=== PATIENT | female | born 1945 | race Caucasian/White ===

== ENCOUNTER → 2017-08-12 | Outpatient (CLI) | payer OTHER, MEDICARE | LOC: FIMAGING 11:18 | DX: Z12.31 Encounter for screening mammogram for malignant neoplasm of breast (principal) ==

== ENCOUNTER 2018-04-27 12:04 | Day surgery (SDC) | payer OTHER, MEDICARE ==
[~2018-04-27 12:04] MED LIST: LIDOCAINE 2% 5 ML SDV ONE; PROPOFOL/EMULSION 500 MG/50 ML BOTTLE IV ONE; fentaNYL 100 MCG/2 ML INJ ONE
--- NOTE | 2018-04-27 12:28 | PDANEPAE ---
ANE History of Present Illness h/o colon polyps, here for colonoscopy ANE Past Medical History - Cardiovascular History Hx Hypertension: No Hx Arrhythmias: No Hx Chest Pain: No Hx Coronary Artery / Peripheral Vascular Disease: No Hx CHF / Valvular Disease: No Hx Palpitations: No Cardiovascular History Comment: high chol - Pulmonary History Hx COPD: No Hx Asthma/Reactive Airway Disease: No Hx Recent Upper Respiratory Infection: No Hx Oxygen in Use at Home: No Hx Sleep Apnea: No Sleep Apnea Screening Result - Last Documented: Negative - Neurologic History Hx Cerebrovascular Accident: No Hx Seizures: No Hx Dementia: No - Endocrine History Hx Diabetes: No Endocrine History Comment: type 2- no medications - Renal History Hx Renal Disorders: No - Liver History Hx Hepatic Disorders: No - Neurological & Psychiatric Hx Hx Neurological and Psychiatric Disorders: No - Cancer History Hx Cancer: No - Congenital Disorder History Hx Congenital Disorders: No - GI History Hx Gastrointestinal Disorders: No - Other Health History Other Health History: wears glasses. tendonitis to left thumb - Chronic Pain History Chronic Pain: No - Surgical History Prior Surgeries: tonsillectomy. ovarian cyst removal. wisdom teeth ANE Review of Systems Review of Systems: - Exercise capacity METS (RN): 4 METS ANE Patient History - Allergies Allergies/Adverse Reactions: No Known Allergies Allergy (Verified 04/09/18 10:37) - Home Medications Home Medications: Aspirin 81mg (*) 04/09/18 [Last Taken Unknown] SIMVASTATIN HS 04/09/18 [Last Taken Unknown] - Smoking Hx Smoking Status: Former smoker - Family Anes Hx Family Hx Anesthesia Complications: none ANE Labs/Vital Signs - Vital Signs Height: 160.02 cm Weight: 68.039 kg ANE Physical Exam - Airway Neck exam: FROM Mallampati Score: Class 2 Mouth exam: normal dental/mouth exam - Pulmonary Pulmonary: no respiratory distress, no rales or rhonchi - Cardiovascular Cardiovascular: regular rate and rhythym, no murmur, rub, or gallop - ASA Status ASA Status: II ANE Anesthesia Plan Anesthesia Plan: GA with mask Total IV Anesthesia: Yes
--- NOTE | 2018-04-27 12:30 | PDGENHP ---
History & Physical Chief Complaint: rectosigmoid polyp History of Present Illness: 72 year old female presents for EMR of a complex rectosigmoid polyp. On biopsies TVA. Pertinent Past, Social, Family History: PMHx: DM. Psurghx: none Relevant Physical Exam: HEENT: anicteric. CV: RRR +s1s2. Lungs: CTAB. Abd: soft, nt, + BS Cardiorespiratory Assessment: ASA 2
[2018-04-27] MEDS ORDERED: LR 1,000 ML IV ONE (12:36)
[2018-04-27] MEDS ORDERED: INDOMETHACIN 50 MG SUPP PR PRN (12:55)
[2018-04-27] MEDS ORDERED: PROPOFOL 200 MG/20 ML VIAL ONE ×2 (12:55)
[2018-04-27] MEDS ORDERED: NS 500 ML IV SCH (13:00)
[2018-04-27] MEDS ORDERED: MEPERIDINE 25 MG/0.5 ML AMP IVP PRN (13:59)
[2018-04-27] MEDS ORDERED: fentaNYL 100 MCG/2 ML INJ IVP PRN (13:59)
[2018-04-27] MEDS ORDERED: LR 500 ML IV PRN (13:59)
[2018-04-27] MEDS ORDERED: NALOXONE HCL 0.4 MG/ML INJ IVP PRN (13:59)
[2018-04-27] MEDS ORDERED: DEXAMETHASONE 4 MG/ML VIAL IVP PRN (13:59)
[2018-04-27] MEDS ORDERED: ONDANSETRON 4 MG/2 ML VIAL IVP PRN (13:59)
[2018-04-27] MEDS ORDERED: HYDROCODONE/APAP 5/325 TAB PO PRN (13:59)
--- NOTE | 2018-04-27 14:00 | POSTANESTH ---
Post Anesthetic Evaluation Cardiovascular Status: Normal, Stable Respiratory Status: Normal, Stable Level of Consciousness/Mental Status: Can Participate in Eval, Moderately Sleepy Pain Control: Adequate, Prn Tx Ordered Nausea/Vomiting Control: Adequate, Prn Tx Ordered Complications Possibly Related to Anesthesia: None Noted
--- NOTE | 2018-04-27 14:22 | GIREPORT ---
[facility] Surgical Services - Endoscopy Department Patient Name: Breanna Haywood Procedure Date: 04/27/2018 12:19 PM Patient Type: Outpatient Attending / ER Physician: Terry Sweeney MD Procedure: Colonoscopy Indications: High risk colon cancer surveillance: Personal history of colonic polyps Patient Profile: 72 year old female presents for EMR of a complex sigmoid polyp. Providers: Terry Sweeney MD Medicines: Monitored Anesthesia Care Complications: No immediate complications. Estimated blood loss: Minimal. Description of Procedure: After obtaining informed consent, the scope was passed under direct vis ion. Throughout the procedure, the patient's blood pressure, pulse, and oxyg en saturations were monitored continuously. The Colonoscope with irrigatio n channel was introduced through the anus and advanced to the cecum, identified by appendiceal orifice and ileocecal valve. The colonoscopy was performed without difficulty. The patient tolerated the procedure well. The quality of the bowel preparation was good. Findings: The perianal and digital rectal examinations were normal. Pertinent negatives include no palpable rectal lesions. Multiple small and large-mouthed diverticula were found in the sigmoid colon and descending colon. A 60 mm polyp was found in the sigmoid colon. The polyp was multi-lobul ated and covered about 70% of the circumference. Significant diverticulosis and the polyp was on a turn which made it complicated. Area was successfull y injected with 5 mL of a Hetastarch-metylene bluel for a lift polypectom y. The polyp was removed with a piecemeal technique using a hot snare. How ever, due to the location the base of part of the polyp could not be located for a lift. Due to the polyp being on a significant turn recommend surgical evaluation. Polyp resection was incomplete. The resected tissue was retrieved. Area was just distal was tattooed with an injection of 4 mL of Em ink. Estimated Blood Loss: Estimated blood loss was minimal. Post Op Diagnosis: - Diverticulosis in the sigmoid colon and in the descending colon. - One 60 mm polyp in the sigmoid colon, removed piecemeal using a hot s nare. INCOMPLETE resection. Resected tissue retrieved. Injected. Tattooed. Recommendation: - Discharge patient to home (with escort). - Resume previous diet. - Continue present medications. - No aspirin, ibuprofen, naproxen, or other non-steroidal anti-inflamma tory drugs. - Repeat colonoscopy in 1 year for surveillance. - Recommend surgical evaluation. - Thank you for allowing me to participate in the care of your patient. Attending Participation: I personally performed the entire procedure. Terry Sweeney MD Terry Sweeney MD 04/27/2018 2:21:39 PM This report has been signed electronicallyTerry Sweeney MD Number of Addenda: 0 Note Initiated On: 04/27/2018 12:19 PM Total Procedure Duration Time 0 hours 33 minutes 19 seconds [email or web address]
[2018-04-27 14:51] VITALS: BP 122/7
== END 2018-04-27 15:19 | disposition home or self-care (01) ==
LOC: FSGY 12:04 → EEVIPCON 13:30 → FSGY 15:19
PROVIDERS: ATTEND Internal Medicine Gastroenterology
PROC: 0DBN8ZX Excision of Sigmoid Colon, Via Natural or Artificial Opening Endoscopic, Diagnostic (ICD-10-PCS; principal; 2018-04-27 13:30)
DX: D12.5 Benign neoplasm of sigmoid colon (principal); K57.30 Diverticulosis of large intestine without perforation or abscess without bleeding; E11.9 Type 2 diabetes mellitus without complications
CPT/HCPCS: J2704; J3010